=== PATIENT | male | born 1950 | race African-American/Black ===

== ENCOUNTER 2016-10-06 05:58 | Day surgery (SDC) | payer MEDICARE, OTHER ==
[~2016-10-06] VITALS: Ht 188.1 cm; Wt 115.4 kg
[2016-10-06] VITALS (10 sets, daily range): BP systolic 109–137; BP diastolic 70–88; PULSE 62–73; TEMP 98.3
[~2016-10-06 05:58] MED LIST: ASPIRIN 81M81 MG/TA2 PO; CALCIUM600 MG PO; HYDRODIURIL50 MG PO; LORTAB 5/500 501 TAB PO; MULTIPLE VITAMI1 CAP PO; NEXIUM 40MG40 MG PO; NITROSTAT0.4 MG/TAB SL; OMEGA 31000 MG PO; POTASSIUM GLUCO80 MG PO; ZESTRIL40 MG PO; ZETIA 10MG TAB10 MG PO; ZYRTEC 10MG10 MG PO
[2016-10-06 06:41] LABS: HEMATOCRIT 42.5 % (42.0-52.0); HEMOGLOBIN 13.6 g/dl (13.5-18.0); MEAN CELL VOLUME 80 fl (80.0-100.0); MEAN CORPUSCULAR HEMOGLOBIN 26 pg (27.0-31.0); MEAN CORPUSCULAR HGB CONC 32 g/dl (33.0-37.0); MEAN PLATELET VOLUME 9.6 fl (7.4-10.4); PLATELET COUNT 249 K/mm3 (130-400); RED BLOOD COUNT 5.32 M/mm3 (4.20-5.60); REDCELL DISTRIBUTION WIDTH-CV 13.7 % (11.5-14.5); WHITE BLOOD COUNT 5.9 K/mm3 (4.8-10.8)
[2016-10-06 06:45] LABS: PROTHROMBIN TIME 11.6 SECONDS (9.7-12.8)
[2016-10-06 06:54] LABS: CALCIUM 9.6 mg/dL (8.4-10.2); CREATININE, serum 1.15 mg/dL (0.66-1.25); POTASSIUM 3.8 mmol/L (3.4-5.0)
[2016-10-06] MEDS ORDERED: WELLBUTRIN XL300 M1 PO (07:36)
[2016-10-06] MEDS ORDERED: COLACE 100100 MG/CAP PO (07:37)
[2016-10-06] MEDS ORDERED: NEURONTIN300 MG/CAP PO (07:42)
[2016-10-06] MEDS ORDERED: FLONASE NASAL S16 GM NS (07:42)
[2016-10-06] MEDS ORDERED: GLUCOPHAGE500 MG/TAB PO (07:44)
[2016-10-06] MEDS ORDERED: PROTONIX 40MG T40 MG PO (07:45)
[2016-10-06] MEDS ORDERED: NAPROXEN 3375 MG/TAB PO (07:45)
[2016-10-06] MEDS ORDERED: HYTRIN 5MG C5 MG/CAP PO (07:46)
[2016-10-06] MEDS ORDERED: NORCO 325 MG-51 TAB PO (07:48)
[2016-10-06] MEDS ORDERED: NIACOR500 MG PO (07:49)
[2016-10-06] MEDS ORDERED: KRILL OIL 5001 EACH PO (07:51)
[2016-10-06] MEDS ORDERED: CRANBERRY450 MG PO (07:54)
[2016-10-06] MEDS ORDERED: CO Q-1010 M1 PO (07:55)
== END 2016-10-06 12:47 | disposition home or self-care (01) ==
LOC: EUO 05:58 → COL.RAD 06:00 → EUO 06:00
PROVIDERS: Internal Medicine Cardiovascular Disease
DX: Q25.0 Patent ductus arteriosus (principal); R94.39 Abnormal result of other cardiovascular function study; R07.9 Chest pain, unspecified; E11.9 Type 2 diabetes mellitus without complications; I10 Essential (primary) hypertension; E78.2 Mixed hyperlipidemia; Z82.49 Family history of ischemic heart disease and other diseases of the circulatory system; Z87.891 Personal history of nicotine dependence; Z79.82 Long term (current) use of aspirin; Z79.899 Other long term (current) drug therapy; K21.9 Gastro-esophageal reflux disease without esophagitis; Z79.84 Long term (current) use of oral hypoglycemic drugs
CPT/HCPCS: C1769; C1887; C1894; J1644; J2250; J3010; Q9967

== ENCOUNTER 2017-03-10 14:05 | Inpatient (IN) | payer MEDICARE, OTHER ==
[~2017-03-10] VITALS: Ht 188 cm; Wt 107.4 kg
[~2017-03-10 14:05] MED LIST changes: +CO Q-1010 M1 PO; +COLACE 100100 MG/CAP PO; +CRANBERRY450 MG PO; +FLONASE NASAL S16 GM NS; +GLUCOPHAGE500 MG/TAB PO; +HYTRIN 5MG C5 MG/CAP PO; +KRILL OIL 5001 EACH PO; +NAPROXEN 3375 MG/TAB PO; +NEURONTIN300 MG/CAP PO; +NIACOR500 MG PO; +NORCO 325 MG-51 TAB PO; +PROTONIX 40MG T40 MG PO; +WELLBUTRIN XL300 M1 PO
[2017-05-16] VITALS (11 sets, daily range): BP systolic 122–149; BP diastolic 69–90; PULSE 60–76; TEMP 97.8–98
[2017-05-17 00:30] VITALS: BP 121/75; PULSE 73; TEMP 98.3
[2017-05-17 04:10] VITALS: BP 117/88; PULSE 71; TEMP 97.8
[2017-05-17 07:10] VITALS: BP 137/90; PULSE 64; TEMP 97.1
[2017-05-17 07:37] LABS: HEMATOCRIT 36.8 % (42.0-52.0); HEMOGLOBIN 11.7 g/dl (13.5-18.0)
[2017-05-17 10:50] VITALS: BP 131/73; PULSE 66; TEMP 98
[2017-05-17] MEDS ORDERED: TYLENOL 500MG500 MG PO (12:57)
[2017-05-17] MEDS ORDERED: ASPI325T6 PO (12:57)
[2017-05-17] MEDS ORDERED: COLACE 100100 MG/CAP PO (12:58)
[2017-05-17] MEDS ORDERED: ROXICODONE 55 MG/TAB PO (12:59)
[2017-05-17] MEDS ORDERED: NORCO 325 MG-7.1 TAB PO (13:00)
== END 2017-05-17 15:29 | disposition home or self-care (01) | DRG 470 ==
LOC: JCC 05-16 06:34 → SDCO 05-16 07:30 → EDSTATUS 05-16 07:30 → JCC 05-16 10:35
PROVIDERS: Orthopaedic Surgery
PROC: 0SRC0J9 Replacement of Right Knee Joint with Synthetic Substitute, Cemented, Open Approach (ICD-10-PCS; principal; 2017-05-16 10:35)
DX: M17.11 Unilateral primary osteoarthritis, right knee (principal); Z87.891 Personal history of nicotine dependence
CPT/HCPCS: A4315; A9284; C1713; C1776; J0690; J2250; J2704; J3010; J3260; J7030; J7120

== ENCOUNTER → 2017-05-01 | Outpatient (CLI) | payer MEDICARE, OTHER ==
[2017-05-01 11:28] LABS: HIV 1/2 Antibodies Non-Reactive; HIV-1p24 Antigen Non-Reactive
== END ==
LOC: COL.LAB 09:29
PROVIDERS: Orthopaedic Surgery
DX: Z01.812 Encounter for preprocedural laboratory examination (principal)

== ENCOUNTER 2018-01-24 16:00 | Inpatient (IN) | payer MEDICARE, OTHER ==
[~2018-01-24] VITALS: Ht 188 cm; Wt 104.8 kg
[~2018-01-24 16:00] MED LIST changes: +ASPI325T6 PO; +NORCO 325 MG-7.1 TAB PO; +ROXICODONE 55 MG/TAB PO; +TYLENOL 500MG500 MG PO
[2018-03-20] VITALS (11 sets, daily range): BP systolic 106–147; BP diastolic 57–88; PULSE 64–89; TEMP 98–98.3
[2018-03-20] MEDS ORDERED: WELLBUTRIN 75MG75 MG PO (08:57)
[2018-03-20] MEDS ORDERED: VALIUM 5MG T5 MG/TAB PO (09:26)
[2018-03-20] MEDS ORDERED: ASPIRIN E.C. 8181 MG PO (09:27)
[2018-03-20] MEDS ORDERED: NIACOR500 MG PO (09:28)
[2018-03-20] MEDS ORDERED: OMEGA-3 1000 MG1 CAP PO (09:28)
[2018-03-20] MEDS ORDERED: CRANBERRY500 M3 PO (09:29)
[2018-03-21 04:00] VITALS: BP 122/68; PULSE 85; TEMP 98.7
[2018-03-21 07:15] VITALS: BP 126/77; PULSE 81; TEMP 98.6
[2018-03-21 11:23] VITALS: BP 138/73; PULSE 86; TEMP 99
[2018-03-21 15:45] VITALS: BP 128/74; PULSE 85; TEMP 100.3
[2018-03-21 16:23] VITALS: TEMP 100.6
[2018-03-21] MEDS ORDERED: ASPI325T6 PO (16:34)
[2018-03-21] MEDS ORDERED: NORCO 325 MG-7.1 TAB PO (16:35)
[2018-03-21] MEDS ORDERED: ROXICODONE 55 MG/TAB PO (16:36)
== END 2018-03-21 17:10 | disposition home or self-care (01) | DRG 483 ==
LOC: JCC 03-20 08:21
PROVIDERS: Orthopaedic Surgery
PROC: 0RRK0JZ Replacement of Left Shoulder Joint with Synthetic Substitute, Open Approach (ICD-10-PCS; principal; 2018-03-20 14:00)
DX: M19.012 Primary osteoarthritis, left shoulder (principal); I10 Essential (primary) hypertension; E11.42 Type 2 diabetes mellitus with diabetic polyneuropathy; I25.10 Atherosclerotic heart disease of native coronary artery without angina pectoris; Z87.891 Personal history of nicotine dependence
CPT/HCPCS: A4314; A9284; C1713; C1776; J0171; J0360; J0690; J2250; J2270; J2405; J2704; J2765; J2795; J3010; J7030

== ENCOUNTER → 2018-03-09 | Outpatient (CLI) | payer MEDICARE, OTHER ==
[2018-03-09 12:26] LABS: HIV 1/2 Antibodies Non-Reactive; HIV-1p24 Antigen Non-Reactive
== END ==
LOC: COL.LAB 11:26
PROVIDERS: Orthopaedic Surgery
DX: Z01.812 Encounter for preprocedural laboratory examination (principal); M19.012 Primary osteoarthritis, left shoulder

== ENCOUNTER 2018-08-15 09:55 | Day surgery (SDC) | payer MEDICARE, OTHER ==
[~2018-08-15] VITALS: Ht 188 cm; Wt 108.5 kg
[~2018-08-15 09:55] MED LIST changes: +ASPIRIN E.C. 8181 MG PO; +CRANBERRY500 M3 PO; +OMEGA-3 1000 MG1 CAP PO; +VALIUM 5MG T5 MG/TAB PO; +WELLBUTRIN 75MG75 MG PO
[2018-08-15 11:09] VITALS: BP 157/82; PULSE 65; TEMP 98.5
[2018-08-15] MEDS ORDERED: ZESTRIL 10MG10 MG PO (11:25)
[2018-08-15] MEDS ORDERED: HCTZ 25MG TAB25 MG PO (11:25)
[2018-08-15] MEDS ORDERED: ZESTRIL 5MG5 MG PO (11:26)
[2018-08-15] MEDS ORDERED: NORCO 325 MG-101 TAB PO (11:27)
[2018-08-15 13:45] VITALS: BP 134/83; PULSE 69; TEMP 98.1
--- NOTE | 2018-08-15 13:45 | NUR ---
Pt returned via cart to [facility]. Report received from [facility]. Pt A&O. VSS-see flowsheet. Pt requested to go to the restroom upon return. Stand by assist to bathroom. Pt voided without difficulty. brought to room by Cleo. Settled pt back in bed. Side rails up. Pt given muffins and coffee per request. x3 incisions to abdomen with lott set closure, clean, dry and intact. Denies pain or other complaints. Call light placed in reach. HOB elevated for pt to eat and drink.
[2018-08-15 14:00] VITALS: BP 138/80; PULSE 64
[2018-08-15 14:15] VITALS: BP 135/68; PULSE 75
[2018-08-15 14:30] VITALS: BP 142/87; PULSE 67
--- NOTE | 2018-08-15 14:42 | NUR ---
VSS-see flowsheet. Pt voided without difficulty. Tolerated x2 muffins and coffee. Denies pain or nausea. IV removed without difficulty and pressure applied with cottonball and coban. Discharge teaching completed with pt and , both verbalize understanding. Pt requested to ambulate to private vehicle instead of going via wheelchair. With steady gait, this nurse ambulated with pt and to private vehicle for dc home.
== END 2018-08-15 14:42 | disposition home or self-care (01) ==
LOC: SDCO 09:55
DX: K40.90 Unilateral inguinal hernia, without obstruction or gangrene, not specified as recurrent (principal); E11.40 Type 2 diabetes mellitus with diabetic neuropathy, unspecified; Z79.84 Long term (current) use of oral hypoglycemic drugs; E78.5 Hyperlipidemia, unspecified; I10 Essential (primary) hypertension; F43.12 Post-traumatic stress disorder, chronic; F41.1 Generalized anxiety disorder; F32.9 Major depressive disorder, single episode, unspecified; K21.9 Gastro-esophageal reflux disease without esophagitis; Z79.899 Other long term (current) drug therapy; Z83.3 Family history of diabetes mellitus; Z82.3 Family history of stroke; Z82.49 Family history of ischemic heart disease and other diseases of the circulatory system
CPT/HCPCS: C1781; J0690; J2704; J2710; J3010; J7120